=== PATIENT | male | born 1995 | race Caucasian/White ===

== ENCOUNTER 2018-12-05 19:46 | Emergency (ER) | payer OTHER ==
[~2018-12-05] VITALS: Ht 165.1 cm; Wt 61.8 kg
[2018-12-05 19:46] VITALS: BP 128/70
[2018-12-05] MEDS: IBUPROFEN 600 MG TAB PO ONE (20:51)
--- NOTE | 2018-12-05 21:42 | REPVR ---
EXAM: US Pelvis Limited, Male EXAM DATE/TIME: 12/05/2018 8:39 PM CLINICAL HISTORY: 23 years old, male; Pelvic pain; Additional info: RO hernia TECHNIQUE: Imaging protocol: Real-time pelvic ultrasound with image documentation. COMPARISON: No relevant prior studies available. FINDINGS: Soft tissues: Scanning of the inguinal regions bilaterally demonstrates no inguinal hernia. Little change is noted in the inguinal canals with Valsalva. IMPRESSION: No inguinal hernia is noted bilaterally. Electronically signed by: Umberto Duckworth On 12/05/2018 21:41:54 PM
== END 2018-12-05 21:02 | disposition home or self-care (01) ==
LOC: M ED 19:46
DX: S39.011A Strain of muscle, fascia and tendon of abdomen, initial encounter (principal); X50.0XXA Overexertion from strenuous movement or load, initial encounter; Y92.89 Other specified places as the place of occurrence of the external cause; Y93.B3 Activity, free weights; F17.210 Nicotine dependence, cigarettes, uncomplicated

== ENCOUNTER 2019-08-08 21:58 | Emergency (ER) | payer OTHER ==
[~2019-08-08] VITALS: Ht 162.6 cm; Wt 69.3 kg
[2019-08-08 23:59] LABS: CHLAMYDIA DNA AMPLIFICATION NEGATIVE (NEGATIVE); GC DNA AMPLIFICATION NEGATIVE (NEGATIVE)
[2019-08-09 00:24] VITALS: BP 120/63
== END 2019-08-09 00:27 | disposition home or self-care (01) ==
LOC: M ED 21:58
DX: Z71.1 Person with feared health complaint in whom no diagnosis is made (principal)

== ENCOUNTER 2020-03-09 22:38 | Emergency (ER) | payer OTHER ==
[~2020-03-09] VITALS: Ht 165.1 cm; Wt 70.5 kg
[2020-03-09] MEDS ORDERED: GNPTAB35 PO (23:13)
[2020-03-09] MEDS ORDERED: PRED20TA PO (23:13)
[2020-03-09] MEDS ORDERED: predniSONE 20 MG TAB PO ONE (23:15)
[2020-03-09] MEDS ORDERED: CETIRIZINE (ZyrTEC) 10 MG TAB PO ONE (23:15)
[2020-03-10 00:01] VITALS: BP 124/76
== END 2020-03-10 00:02 | disposition home or self-care (01) ==
LOC: M ED 22:38
DX: L23.9 Allergic contact dermatitis, unspecified cause (principal); F17.200 Nicotine dependence, unspecified, uncomplicated; Z91.030 Bee allergy status